=== PATIENT | female | born 1980 | race Caucasian/White ===

== ENCOUNTER → 2022-12-12 13:51 | Outpatient (BNVA) | payer MEDICARE, MEDICAID, SELFPAY | PROVIDERS: Visit Provider Psychiatry & Neurology Psychiatry | DX: Z79.899 Other long term (current) drug therapy (principal) | CPT/HCPCS: 80053; 80061; 83036; 84443; 85025 ==

== ENCOUNTER → 2023-01-30 15:16 | Outpatient (BNVA) | payer MEDICARE, MEDICAID, SELFPAY | PROVIDERS: Visit Provider Dermatology | DX: L82.0 Inflamed seborrheic keratosis (principal); L13.0 Dermatitis herpetiformis; L82.1 Other seborrheic keratosis; L57.0 Actinic keratosis; D22.62 Melanocytic nevi of left upper limb, including shoulder; D22.5 Melanocytic nevi of trunk | CPT/HCPCS: 17000; 17110; 99204 ==